=== PATIENT | male | born 2000 | race African-American/Black ===

== ENCOUNTER 2021-03-31 00:03 | Emergency (ER) | payer SELFPAY ==
[2021-03-31 00:09] VITALS: BP 145/92; PULSE 94; RESP 20; TEMP 36.6; O2SAT 100
[2021-03-31 03:10] VITALS: BP 141/96; PULSE 80; RESP 16; O2SAT 100
[2021-03-31 03:19] LABS: Add Urine Microscopic? YES; Appearance Urine Clear (Clear); Bacteria Urine Trace /hpf; Bilirubin Urine Negative (Negative); Blood Urine Negative (Negative); Color Urine Yellow (Yellow); Glucose Urine UA Negative (Negative); Ketones Urine Negative (Negative); Leukocyte Esterase Ur 2+ LEU/UL (Negative); Mucus Urine Rare /lpf; Nitrate Urine Negative (Negative); Protein Urine 1+ mg/dL (Negative); Specific Grav Ur 1.027 (1.001-1.035); Squamous Epithelial Cell Urine Rare /hpf (Few); WBC Urine 51-75 /hpf
[2021-03-31] MEDS: LIDOCAINE HCL 1% LOCAL INJ 20 ML VIAL (03:49)
[2021-03-31] MEDS: cefTRIAXone 1 GM VIAL 0.5 GM IM (03:49)
[2021-03-31] MEDS: metroNIDAZOLE 250 MG TABLET 2000 MG PO (03:50)
[2021-03-31] MEDS: AZITHROMYCIN 250 MG TABLET 1000 MG PO (03:50)
--- NOTE | 2021-03-31 04:13 | ED.GENADULT ---
HPI - General Adult General Chief complaint: Urogenital-Male Stated complaint: baby gavin has chlamydia and trich. wants test Time Seen by Provider: 03/31/21 02:37 Source: patient and RN notes reviewed Mode of arrival: ambulatory Limitations: no limitations History of Present Illness HPI narrative: This is a 20 year old male who presents for evaluation of STD exposure. Patient states his sexual partner told him she had trichomonas and Chlamydia, and he needed to get treated. He denies penile discharge, abdominal pain, dysuria or penile lesions. He reports history of STD 3 years ago . His last sexual contact with this partner was 1 week ago. Related Data Allergies Allergy/AdvReac Type Severity Reaction Status Date / Time No Known Allergies Allergy Verified 03/31/21 00:13 Review of Systems Review of Systems: All systems reviewed & are unremarkable except as noted in HPI and below PMFSH Past Medical History Medical History (Updated 03/31/21 @ 04:18 by Aidee Pinon MD) Patient denies medical problems Surgical History Surgical History (Updated 03/31/21 @ 04:16 by Aidee Pinon MD) No pertinent past surgical history Social History Social History (Updated 03/31/21 @ 04:16 by Aidee Pinon MD) Smoking status: Never smoker Exam Const: General: no acute distress and alert Eyes: EOM: EOMs intact bilaterally Resp: Effort & Inspection: normal respiratory effort and no retractions Auscultation: clear to auscultation bilaterally Cardio: Rate: regular rate Rhythm: regular rhythm Heart sounds: no murmurs GI: GI Palp: Yes Soft to palpation, No Tenderness to palpation present (GI) and No Guarding due to palpation present (GI) Auscultation: normal bowel sounds : General: Yes no CVA tenderness Male General Exam: Yes normal external exam Penis: Yes normal penis and Yes circumcised Scrotum: scrotum normal Testes: epididymides normal Skin: General skin exam: normal color Rashes: no rashes Neuro: General: patient oriented x3 and moves all extremities Course Reevaluation(s) Reevaluation #1: PAtient was treated presumptively for gonorrhea, chlamydia and trichomonas. Date: 03/31/21 Time: 04:16 Vital Signs Vital signs: Vital Signs Temperature 97.8 F 03/31/21 00:09 Pulse Rate 94 03/31/21 00:09 Respiratory Rate 20 03/31/21 00:09 Blood Pressure 145/92 H 03/31/21 00:09 Pulse Oximetry 100 03/31/21 00:09 Temperature 97.8 F 03/31/21 00:09 Pulse Rate 80 03/31/21 03:10 Respiratory Rate 16 03/31/21 03:10 Blood Pressure 141/96 H 03/31/21 03:10 Pulse Oximetry 100 03/31/21 03:10 Medical Decision Making Vital Signs Vital Signs: Vital Signs Temperature 97.8 F 03/31/21 00:09 Pulse Rate 94 03/31/21 00:09 Respiratory Rate 20 03/31/21 00:09 Blood Pressure 145/92 H 03/31/21 00:09 Pulse Oximetry 100 03/31/21 00:09 Temperature 97.8 F 03/31/21 00:09 Pulse Rate 80 03/31/21 03:10 Respiratory Rate 16 03/31/21 03:10 Blood Pressure 141/96 H 03/31/21 03:10 Pulse Oximetry 100 03/31/21 03:10 Lab Data Labs: Lab Results 03/31/21 03/31/21 Range/Units 03:05 03:05 Urine Color Yellow (Yellow) Urine Appearance Clear (Clear) Urine pH 6.0 (5.0-9.0) Ur Specific [place] 1.027 (1.001-1.035) Urine Protein 1+ H (Negative) mg/dL Urine Glucose (UA) Negative (Negative) mg/dL Urine Ketones Negative (Negative) mg/dL Ur Blood (Man) Negative (Negative) Urine Nitrate Negative (Negative) Urine Bilirubin Negative (Negative) Urine Urobilinogen 2.0 H (<2.0) mg/dL Leukocyte Esterase Rfl 2+ H (Negative) DANIEL/UL Urine RBC 11-20 H (0-2) /hpf Urine WBC 51-75 H /hpf Ur Squamous Epith Cells Rare (Few) /hpf Urine Bacteria Trace /hpf Urine Mucus Rare /lpf C.trachomatis RNA (TMA) Pending N.gonorrhoeae RNA (TMA) Pending Urine Characteristics Clear
== END 2021-03-31 04:41 | disposition home or self-care (01) ==
PROVIDERS: Emergency Provider General Practice
DX: N39.0 Urinary tract infection, site not specified (principal); Z20.2 Contact with and (suspected) exposure to infections with a predominantly sexual mode of transmission
CPT/HCPCS: 81001; 87086; 87088; 87491; 87591; 96372; 99283; A9270; J0696